=== PATIENT | female | born 1995 | race Caucasian/White ===

== ENCOUNTER 2016-08-16 18:58 | Emergency (ER) | payer OTHER ==
[~2016-08-16] VITALS: Ht 167.6 cm; Wt 53.3 kg
[2016-08-16 19:18] VITALS: Ht 167.6 cm; Wt 53.3 kg
[2016-08-16] MEDS ORDERED: SODIUM CHLORIDE 0.9% 1000ML 1,000 ML IV ONE (20:45)
[2016-08-16] MEDS ORDERED: KETOROLAC TROMETHAMINE 30 MG/ML VIAL IV STA (20:48)
[2016-08-16] MEDS ORDERED: ONDANSETRON INJ 2 MG/ML 2 ML VIAL IV STA (20:48)
--- NOTE | 2016-08-16 20:48 | EMERGENCY ROOM VISIT NOTE ---
History Report prepared by Rowena: Gareth Lopez Under the Supervision of: Dr. Tom Nesbitt M.D. First contact with patient: 20:28 Chief Complaint: FEVER Stated Complaint: FEVER, HEADACHE, DRY/SORE THROAT, NAUSEA, COUGH History of Present Illness The patient is a 21 year old female who presents to the Emergency Room with complaints of flu-like symptoms that began yesterday. The patient rates her pain a 7/10 in severity. She is experiencing a fever, headaches, cough, nausea, vomiting, and generalized malaise. She is having generalized muscle aches globally. She took Tylenol 8 hours ago. Her last episode of emesis was early this morning. She denies any back pain. She states that there is no chance of her being or having tampon retention. Her last menstrual period was today. She is not taking any medications. She has a past medical history of back hardware placement that occurred 6 years ago in [place] (her home). Source of History: patient Onset: yesterday Position: other (global) Symptom Intensity: 7/10 Quality: other (flu-like symptoms) Timing: constant Associated Symptoms: + cough, + fevers, + headache, + nausea, + vomiting, No back pain Note: She is having global muscle aches and malaise. Review of Systems See HPI for pertinent positives & negatives. A total of 10 systems reviewed and were otherwise negative. Past Medical & Surgical Surgical Problems: (1) Previous back surgery Family History Patient reports no known family medical history. Social History Smoking Status: Never Smoker Smokeless Tobacco Use: No Drug Use: none Marital Status: single Housing Status: lives with roommate Occupation Status: student Current/Historical Medications Scheduled Oseltamivir Phosphate (Tamiflu), 75 MG PO BID Sulfa/Trimethoprim (Bactrim Ds 800MG/160MG), 1 TAB PO BID Allergies Coded Allergies: No Known Allergies (Unverified , 08/16/16) Physical Exam Vital Signs Date Time Temp Pulse Resp B/P Pulse Ox O2 Delivery O2 Flow Rate FiO2 08/16/16 23:30 88/57 08/16/16 23:12 37.0 136 24 82/44 97 Room Air 08/16/16 22:47 138 20 86/48 100 2.0 08/16/16 22:03 158 08/16/16 21:57 154 20 92/62 100 2.0 08/16/16 21:24 75 16 97 Room Air 08/16/16 21:10 98 08/16/16 19:18 38.3 145 18 98/63 98 Room Air Physical Exam GENERAL: Patient is a healthy-appearing well-nourished HEAD: Normocephalic atraumatic EYES: Ocular movements intact pupils equal and react to light OROPHARYNX mucous membranes are moist no exudates present no erythema or edema present NECK: Supple no nuchal rigidity CHEST: Good equal expansion LUNGS: Clear and equal to auscultation CARDIAC: Normal S1 and S2 ABDOMEN: Soft nontender no guarding BACK: No CVA tenderness. Surgical scar present. No infection. No tenderness to the midline. EXTREMITIES: No pain upon palpation normal muscle strength in all groups no clubbing cyanosis or edema NEURO: Patient is following commands is answering questions appropriately. Alert and oriented x3 Cranial Nerves 2-12 grossly intact Medical Decision & Procedures ER Provider Diagnostic Interpretation: Radiology results as stated below per my review and radiologist interpretation: CHEST ONE VIEW PORTABLE CLINICAL HISTORY: Sepsis dyspnea COMPARISON STUDY: No previous studies for comparison. FINDINGS: scoliosis of the thoracolumbar spine.] Fixation on a postoperative basis. Lungs are clear. Diaphragms are smooth. IMPRESSION: No acute process. Electronically signed by: Man Wright M.D. 08/16/2016 9:03 PM Dictated Date/Time: 08/16/2016 9:02 PM Laboratory Results 08/16/16 20:45 Red Blood Count 4.24, Mean Corpuscular Volume 92.2, Mean Corpuscular Hemoglobin 31.1, Mean Corpuscular Hemoglobin Concent 33.8, Mean Platelet Volume 10.2, Neutrophils (%) (Auto) 88.9, Lymphocytes (%) (Auto) 5.6, Monocytes (%) (Auto) 5.1, Eosinophils (%) (Auto) 0.0, Basophils (%) (Auto) 0.2, Neutrophils # (Auto) 5.88, Lymphocytes # (Auto) 0.37, Monocytes # (Auto) 0.34, Eosinophils # (Auto) 0.00, Basophils # (Auto) 0.01 08/16/16 20:45 Test 08/16/16 00:00 08/16/16 20:35 08/16/16 20:42 08/16/16 20:45 Influenza Type A Antigen POS for Influ A (NEG) Influenza Type B Antigen Neg for Influ B (NEG) Urine Color YELLOW Urine Appearance CLEAR (CLEAR) Urine pH 5.0 (4.5-7.5) Urine Specific [place] 1.024 (1.000-1.030) Urine Protein NEG (NEG) Urine Glucose (UA) NEG (NEG) Urine Ketones 1+ (NEG) Urine Occult Blood 3+ (NEG) Urine Nitrite NEG (NEG) Urine Bilirubin NEG (NEG) Urine Urobilinogen NEG (NEG) Urine Leukocyte Esterase TRACE (NEG) Urine WBC (Auto) 5-10 /hpf (0-5) Urine RBC (Auto) 0-4 /hpf (0-4) Urine Hyaline Casts (Auto) 5-10 /lpf (0-5) Urine Epithelial Cells (Auto) >30 /lpf (0-5) Urine Bacteria (Auto) NEG (NEG) Bedside Lactic Acid Venous 1.71 mmol/L (0.90-1.70) White Blood Count 6.61 K/uL (4.8-10.8) Red Blood Count 4.24 M/uL (4.2-5.4) Hemoglobin 13.2 g/dL (12.0-16.0) Hematocrit 39.1 % (37-47) Mean Corpuscular Volume 92.2 fL (80-100) Mean Corpuscular Hemoglobin 31.1 pg (25-34) Mean Corpuscular Hemoglobin Concent 33.8 g/dl (32-36) Platelet Count 154 K/uL (130-400) Mean Platelet Volume 10.2 fL (7.4-10.4) Neutrophils (%) (Auto) 88.9 % Lymphocytes (%) (Auto) 5.6 % Monocytes (%) (Auto) 5.1 % Eosinophils (%) (Auto) 0.0 % Basophils (%) (Auto) 0.2 % Neutrophils # (Auto) 5.88 K/uL (1.4-6.5) Lymphocytes # (Auto) 0.37 K/uL (1.2-3.4) Monocytes # (Auto) 0.34 K/uL (0.11-0.59) Eosinophils # (Auto) 0.00 K/uL (0-0.5) Basophils # (Auto) 0.01 K/uL (0-0.2) RDW Standard Deviation 42.2 fL (36.4-46.3) RDW Coefficient of Variation 12.4 % (11.5-14.5) Immature Granulocyte % (Auto) 0.2 % Immature Granulocyte # (Auto) 0.01 K/uL (0.00-0.02) Prothrombin Time 11.5 SECONDS (9.0-12.0) Prothromb Time International Ratio 1.1 (0.9-1.1) Activated Partial Thromboplast Time 29.2 SECONDS (21.0-31.0) Partial Thromboplastin Ratio 1.1 Anion Gap 12.0 mmol/L (3-11) Est Creatinine Clear Calc Drug Dose 103.4 ml/min Estimated GFR () 137.4 Estimated GFR (Non- 118.6 BUN/Creatinine Ratio 10.0 (10-20) Calcium Level 9.2 mg/dl (8.5-10.1) Total Bilirubin 0.4 mg/dl (0.2-1) Aspartate Amino Transf (AST/SGOT) 21 U/L (15-37) Alanine Aminotransferase (ALT/SGPT) 23 U/L (12-78) Alkaline Phosphatase 74 U/L (45-117) Total Protein 8.3 gm/dl (6.4-8.2) Albumin 4.0 gm/dl (3.4-5.0) Globulin 4.3 gm/dl (2.5-4.0) Albumin/Globulin Ratio 0.9 (0.9-2) Monoscreen NEG (NEG) Labs reviewed by ED physician. Medications Administered Medications (Trade) Dose Ordered Sig/Iván Route Start Time Stop Time Status Last Admin Dose Admin Sodium Chloride (Nss 1000ml) 1,000 ml @ 999 mls/hr Q1H1M ONCE IV 08/16/16 20:45 08/16/16 21:45 DC 08/16/16 21:09 999 MLS/HR Ketorolac Tromethamine (Toradol Inj) 30 mg NOW STAT IV 08/16/16 20:48 08/16/16 20:50 DC 08/16/16 21:09 30 MG Ondansetron HCl (Zofran Inj) 4 mg NOW STAT IV 08/16/16 20:48 08/16/16 20:50 DC 08/16/16 21:09 4 MG Albuterol/ Ipratropium 12 ml 12 ml ONE ONCE INH 08/16/16 21:00 08/16/16 21:01 DC 08/16/16 21:09 12 ML Sodium Chloride (Nss 1000ml) 1,000 ml @ 999 mls/hr Q1H1M STAT IV 08/16/16 21:33 08/16/16 22:33 DC 08/16/16 21:58 999 MLS/HR Acetaminophen (Tylenol Tab) 1,000 mg NOW STAT PO 08/16/16 21:33 08/16/16 21:35 DC 08/16/16 21:58 1,000 MG Ceftriaxone Sodium (Rocephin Inj) 1 gm NOW STAT IV 08/16/16 21:53 08/16/16 21:54 DC 08/16/16 22:08 1 GM Oseltamivir Phosphate (Tamiflu Cap) 75 mg NOW STAT PO 08/16/16 21:53 08/16/16 21:54 DC 08/16/16 22:08 75 MG Potassium Chloride (Klor-Con M10) 40 meq NOW STAT PO 08/16/16 22:39 08/16/16 22:40 DC 08/16/16 23:22 40 MEQ ED Course 2027: Past medical records reviewed. The patient was evaluated in room B6. A complete history and physical examination was performed. 2044: Sodium Chloride 1000 ml @ 999 mls/hr IV 204: Zofran Inj 4 mg IV, Toradol Inj 30 mg IV 2100: Duoneb 12 ml INH 2133: Tylenol Tab 1000 mg PO, Sodium Chloride 1000 ml @ 999 mls/hr IV 2153: Tamiflu Cap 75 mg PO, Rocephin Inj 1 gm IV 2239: Potassium Chloride 40 meq PO 2326: Upon reexamination the patient is resting. I discussed results and treatment plan with the patient. She verbalizes agreement and understanding. The patient is ready for discharge. Medical Decision Etiologies such as viral syndrome, otitis, pharyngitis, pneumonia, influenza, meningitis, urinary tract infection, sepsis, bacteremia, as well as others were entertained. This is a 21-year-old female who presents emergency department complaining of fever that has been ongoing for the past several days. Upon arrival to the emergency department the patient is tachycardic and hypotensive however she seems to be asymptomatic. For this reason blood cultures were obtained along with urine culture. The patient is given normal saline bolus 2. Repeat examination revealed improvement patient's symptoms. The patient was started on Rocephin for what appears to be a urinary tract infection. I will continue the patient on Bactrim. The patient does not have an elevation in her white blood count and is healthy appearing. I will place her on Tamiflu for the flow. I will note that her tachycardia return to normal until she received her breathing treatments. I do believe she can be safely discharged home for follow -up with [facility] services. Patient and boyfriend were in agreement with the treatment plan. Impression Primary Impression: Influenza A Additional Impression: UTI (urinary tract infection) Scribe Attestation The scribe's documentation has been prepared under my direction and personally reviewed by me in its entirety. I confirm that the note above accurately reflects all work, treatment, procedures, and medical decision making performed by me. Departure Information Dispostion Home / Self-Care Prescriptions Oseltamivir Phosphate (Tamiflu) 75 Mg Cap 75 MG PO BID for 5 Days, #10 CAP Prov: Tom Nesbitt MD 08/16/16 Sulfa/Trimethoprim (Bactrim Ds 800MG/160MG) Tab 1 TAB PO BID for 7 Days, #14 TAB Prov: Tom Nesbitt MD 08/16/16 Referrals No Doctor, Assigned (PCP) [facility] Forms HOME CARE DOCUMENTATION FORM, IMPORTANT VISIT INFORMATION, School Instructions, Work Instructions Patient Instructions ED Flu, My [facility], UTI Additional Instructions Increase fluid intake next 48 hours Take 600 mg Ibuprofen every 6 hours for fever Take 650 mg TYlenol every 6 hours for fever You have been examined and treated today on an emergency basis only. This is not a substitute for, or an effort to provide, complete comprehensive medical care. It is impossible to recognize and treat all injuries or illnesses in a single emergency department visit. It is therefore important that you follow up closely with [facility]. Call as soon as possible for an appointment. Thank you for your time and consideration. I look forward to speaking with you again soon. Please don't hesitate to call us if you have any questions. Problem Qualifiers Additional Impression: UTI (urinary tract infection) Urinary tract infection type: acute cystitis Hematuria presence: with hematuria Qualified Codes: N30.01 - Acute cystitis with hematuria
[2016-08-16] MEDS ORDERED: ALBUT/IPRATROP 3MG/0.5MG NEB 3 ML VIAL INH ONE (21:00)
--- NOTE | 2016-08-16 21:04 | DIAGNOSTIC IMAGING REPORT ---
CHEST ONE VIEW PORTABLE CLINICAL HISTORY: Sepsis dyspnea COMPARISON STUDY: No previous studies for comparison. FINDINGS: scoliosis of the thoracolumbar spine.] Fixation on a postoperative basis. Lungs are clear. Diaphragms are smooth. IMPRESSION: No acute process. Electronically signed by: Man Wright M.D. 08/16/2016 9:03 PM Dictated Date/Time: 08/16/2016 9:02 PM
[2016-08-16 21:10] VITALS: O2SAT 98
[2016-08-16 21:13] LABS: BASO % 0.2 %; BASO ABS # 0.01 K/uL (0-0.2); COMPLETE YES; HEMATOCRIT 39.1 % (37-47); IG% 0.2 %; LYMPH % 5.6 %; LYMPH ABS # 0.37 K/uL (1.2-3.4); MEAN CELL VOLUME 92.2 fL (80-100); MEAN CORPUSCULAR HEMOGLOBIN 31.1 pg (25-34); MEAN CORPUSCULAR HGB CONC 33.8 g/dl (32-36); MEAN PLATELET VOLUME 10.2 fL (7.4-10.4); MONO % 5.1 %; NEUT % 88.9 %; PLATELET COUNT 154 K/uL (130-400); RED BLOOD COUNT 4.24 M/uL (4.2-5.4); WHITE BLOOD COUNT 6.61 K/uL (4.8-10.8)
[2016-08-16 21:23] LABS: INR 1.1 (0.9-1.1); PARTIAL THROMBOPLASTIN RATIO 1.1; PROTHROMBIN TIME (PATIENT) 11.5 SECONDS (9.0-12.0)
[2016-08-16 21:24] VITALS: PULSE 75; O2SAT 97
[2016-08-16 21:26] LABS: URINE APPEARANCE CLEAR (CLEAR); URINE BILIRUBIN NEG (NEG); URINE COLOR YELLOW; URINE EPITHELIAL CELL AUTO >30 /lpf (0-5); URINE NITRITE NEG (NEG); URINE SPECIFIC GRAVITY 1.024 (1.000-1.030); UROBILINOGEN NEG (NEG); ZZUR CULT IF INDIC CLEAN CATCH NO
[2016-08-16] MEDS ORDERED: ACETAMINOPHEN 500 MG TAB PO STA (21:33)
[2016-08-16] MEDS ORDERED: SODIUM CHLORIDE 0.9% 1000ML 1,000 ML IV STA (21:33)
[2016-08-16 21:35] LABS: MANUAL MICROSCOPIC REQUIRED? NO; REVIEW REQ? NO
[2016-08-16 21:38] LABS: CALCIUM 9.2 mg/dl (8.5-10.1); CREATININE 0.73 mg/dl (0.60-1.20); POTASSIUM 3.4 mmol/L (3.5-5.1)
[2016-08-16 21:41] LABS: ALB/GLOB RATIO 0.9 (0.9-2)
[2016-08-16] MEDS ORDERED: CEFTRIAXONE SOD INJ 1 GM ADDVIAL IV STA (21:53)
[2016-08-16] MEDS ORDERED: OSELTAMIVIR PHOSPHATE 75 MG CAP PO STA (21:53)
[2016-08-16] MEDS ORDERED: POTASSIUM CHLORIDE 10 MEQ TABCR PO STA (22:39)
[2016-08-16 23:12] VITALS: PULSE 136; TEMP 37; O2SAT 97
[2016-08-16] MEDS ORDERED: SULF800T23 PO (23:17)
[2016-08-16] MEDS ORDERED: NF406 PO (23:17)
[2016-08-16 23:30] VITALS: BP 88/57
[2016-08-19 11:29] LABS: EBV EARLY ANTIGEN AB <0.91 INDEX; EPSTEIN BARR VIR CAPSID IGG 4.72 INDEX
== END 2016-08-16 23:30 | disposition home or self-care (01) ==
LOC: C.EDB 19:02
DX: J10.1 Influenza due to other identified influenza virus with other respiratory manifestations (principal); N30.01 Acute cystitis with hematuria